=== PATIENT | male | born 1970 | race Caucasian/White ===

== ENCOUNTER 2018-11-13 20:41 | Emergency (ER) | payer MEDICAID ==
[~2018-11-13] VITALS: Ht 172.7 cm; Wt 106.6 kg
[2018-11-13 20:51] VITALS: BP 132/86
--- NOTE | 2018-11-13 20:51 | NUR ---
TO BED # 10 AMBULATORY
--- NOTE | 2018-11-13 20:52 | NUR ---
PT BIB SELF C/O LEFT LEG PAIN. PT STATES SUDDEN ONSET OF RED ITCHY BUMP TO LEFT LEG X3 DAYS AGO, REDNESS AND PAIN HAVE INCREASED; PT PUT WARM COMPRESS ON SITE W/O RELIEF. PT STATES 8/10 PAIN W/ MOVEMENT. 2.5-3 CM CIRCULAR SITE TO LEFT EVANS, +REDNESS, -DISCHARGE; SITE IS WARM TO TOUCH, CMS INTACT. PT ACTING APPROPRIATLY, SPEAKING IN CLEAR AND COMPLETE SENTENCES. BREATHING EQUAL AND UNLABORED. SAFETY PRECAUTIONS IN PLACE, BEDRAILS UP X1. PENDING ERMD EVAL. WILL CONTINUE TO MONITOR. PMH: DANISH
--- NOTE | 2018-11-13 20:56 | NUR ---
DR. GAMEZ AT BEDSIDE.
[2018-11-13] MEDS ORDERED: SULFAMETH/TRIMETH DS 800/160MG 1 TAB PO ONE (21:00)
[2018-11-13] MEDS ORDERED: CEPHALEXIN 500 MG CAP PO ONE (21:00)
[2018-11-13 21:26] VITALS: BP 161/90
--- NOTE | 2018-11-13 21:26 | NUR ---
Patient discharged with v/s stable. Written and verbal after care instructions given and explained. Patient alert, oriented and verbalized understanding of instructions. Ambulatory with steady gait. All questions addressed prior to discharge. ID band removed. Patient advised to follow up with PMD. Rx of bactrim, keflex given. Patient educated on indication of medication including possible reaction and side effects. Opportunity to ask questions provided and answered.
== END 2018-11-13 21:26 | disposition home or self-care (01) ==
LOC: MED 20:41
DX: L03.116 Cellulitis of left lower limb (principal); E11.9 Type 2 diabetes mellitus without complications
CPT/HCPCS: 99283